=== PATIENT | male | born 1995 | race Caucasian/White ===

== ENCOUNTER 2022-02-20 20:00 | Emergency (ER) | payer OTHER ==
[~2022-02-20] VITALS: Ht 188 cm; Wt 113.0 kg
[2022-02-20] MEDS ORDERED: BICT1TAB PO (20:09)
[2022-02-20 21:04] VITALS: BP 131/86
== END 2022-02-20 21:07 | disposition home or self-care (01) ==
LOC: EMS 20:11
DX: S00.81XA Abrasion of other part of head, initial encounter (principal); F17.210 Nicotine dependence, cigarettes, uncomplicated; X58.XXXA Exposure to other specified factors, initial encounter; Y93.89 Activity, other specified; Y92.89 Other specified places as the place of occurrence of the external cause; Y99.8 Other external cause status
CPT/HCPCS: 99283; Z7502